=== PATIENT | male | born 1950 | race Caucasian/White ===

== ENCOUNTER 2016-12-16 09:59 | Emergency (ER) | payer OTHER ==
[~2016-12-16] VITALS: Ht 172.7 cm; Wt 121.6 kg
--- NOTE | ~2016-12-16 | EKG ---
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 : 1950 Requested By: Femi Llamas Order Number: [id number] MD: Elver Ricardo Measurements Intervals Gary Rate: 78 P: 32 NE: 221 QRS: -9 QRSD: 100 T: 9 QT: 402 QTc: 458 Interpretive Statements Sinus rhythm Prolonged NE interval Borderline T abnormalities, anterior leads Compared to ECG 12/11/2016 13:33:35 T-wave abnormality now present Electronically Signed On 12-17-2016 9:18:44 CDT by Elver Ricardo [email or web address] <ELECTRONICALLY SIGNED> By: Elver Ricardo MD, [facility] 12/17/16 0918 1040 1040 Elver Ricardo MD, FACC /EPI
[~2016-12-16 09:59] MED LIST: ALLOPURINOL 30300 M2 PO; ASPIR 8181 MG PO; CENTRUM SILVER1 EAC2 PO; CYCLOBENZAPRINE10 MG PO; CYMBALTA60 MG PO; FLOMAX0.4 MG PO; GABAPENTIN 100100 MG PO; HYDROCODONE-AP1 EAC6 PO; LASIX 20 MG TAB20 MG PO; LISINOPRIL10 MG PO; MEDROLDOSEPACK PO; METHOCARBAMOL500 M1; NEURONTIN 300300 M1 PO; OXYCODONE-APAP1 EAC6 PO; OXYCONTIN10 M1; OXYCONTIN10 M1 PO; PERCOCET 5-3251 EACH PO; PERCOCET 7.5-31 EACH PO; PERCOCET PO; POTASSIUM CHLO20 ME2 PO; RISPERDAL0.5 MG PO; TIZANIDINE HCL4 M1 PO; TIZANIDINE HCL4 MG PO; WELLBUTRIN 100100 MG PO; XANAX 0.5 MG0.5 MG PO; ZANAFLEX4 MG PO; ZOCOR20 MG PO; [UNRECOGNIZED DRUG - OTHER] PO
[2016-12-16 10:47] LABS: HEMOGLOBIN 12.3 gm/dL (14.0-18.0); RBC 4.16 mil/uL (4.50-6.00)
[2016-12-16 10:49] LABS: HEMATOCRIT 36.9 % (42.0-52.0); MCH 29.5 pg (26.0-34.0); MCHC 33.3 g/dL (28.0-37.0); MCV 88.6 fL (80.0-100.0); PLATELET COUNT 241 thou/uL (150-400); RDW 14.5 % (10.5-14.5); WBC 32.9 thou/uL (4.0-11.0)
[2016-12-16 10:50] LABS: MANUAL DIFF YES
[2016-12-16 10:56] LABS: ANION GAP 12 mmol/L (7-16); BUN 15 mg/dL (7-18); CHLORIDE 104 mmol/L (98-107); CO2 27 mmol/L (21-32); CREATININE 1.3 mg/dL (0.7-1.3); GLUCOSE 198 mg/dL (74-106); POTASSIUM 3.5 mmol/L (3.5-5.1); SODIUM 143 mmol/L (136-145)
[2016-12-16 11:07] LABS: ALKALINE PHOSPHATASE 58 U/L (46-116); NT-PRO BRAIN NAT PEPTIDE 232 pg/mL (<300); SGOT 21 U/L (15-37); SGPT 21 U/L (30-65); TOTAL BILIRUBIN 0.6 mg/dL (<0.1-1.0); TOTAL PROTEIN 5.8 g/dL (6.4-8.2); TROPONIN-I < 0.04 ng/mL (<0.04-0.07)
[2016-12-16 11:31] LABS: ABSOLUTE NEUTROPHILS 9.5 thou/uL (1.4-8.2); TOTAL CELL COUNT 100
[2016-12-16 11:32] LABS: ATYPICAL LYMPHS 3 %; OVALOCYTES 1+
[2016-12-16 11:33] LABS: ANISOCYTOSIS 1+
[2016-12-16] MEDS ORDERED: PENICILLIN V P500 MG PO (12:27)
== END 2016-12-16 12:53 ==
LOC: ER 09:59
PROVIDERS: Physician Assistant
DX: I88.9 Nonspecific lymphadenitis, unspecified (principal); C91.10 Chronic lymphocytic leukemia of B-cell type not having achieved remission; K02.9 Dental caries, unspecified; K04.01 Reversible pulpitis; R60.0 Localized edema; I10 Essential (primary) hypertension; E78.00 Pure hypercholesterolemia, unspecified; F32.9 Major depressive disorder, single episode, unspecified; F41.9 Anxiety disorder, unspecified; G47.30 Sleep apnea, unspecified; M10.9 Gout, unspecified; N40.0 Benign prostatic hyperplasia without lower urinary tract symptoms; Z90.49 Acquired absence of other specified parts of digestive tract; Z86.14 Personal history of Methicillin resistant Staphylococcus aureus infection; Z87.891 Personal history of nicotine dependence

== ENCOUNTER → 2016-12-27 | Outpatient (CLI) | payer OTHER ==
[~2016-12-27] VITALS: Ht 172.7 cm; Wt 113.3 kg
[~2016-12-27] MED LIST changes: +PENICILLIN V P500 MG PO; +PREDNISONE10 MG PO
--- NOTE | ~2016-12-27 | HPC ---
[facility] [place] [address] PAIN MANAGEMENT CONSULTATION Name: XU FITZGERALD Room #: REG OPAL Beckett#: [id number] Admission: 12/27/16 Attend Phys: Rxe Joyce DO Discharge: Date of : 48 Report #: [id number] THIS REPORT FOR: //name// CC: Ramirez Joyce DATE OF SERVICE: 12/27/2016 The patient is a 66-year-old gentleman. I have his for quite some time, though he has only been under my care recently since January. I had prior seen him back in 2009 for right shoulder pain and lost to follow up. When he returned on 02/23/2016, he had lumbar radicular symptoms. We did 3 epidural injection 02/06/2016, 03/05/2016 and 04/23/2016. He followed up in July. He had progressed to a right-sided L2-L3 and L3-L4 laminectomy with Dr. Stiven Ryder. His right leg seemed to get better. When I saw him, he was having some ongoing chronic pain concerns. I had a long discussion with the patient who [facility] 5/325 two tablets 3 times a day. He has multiple psychiatric comorbidities including history of Asperger disease, chronic anxiety and depression, history of hepatitis C as a child, was on multiple central acting agents. I suggested that he needed to be cautious with opiate analgesics. He asked if I would takeover his medication. I took the liberty of writing for Percocet 7.5/325 mandating that he not take 2 tablets at a onetime, simply take 1 tablet 3-4 times a day. He returns to pain clinic today noting that he continues to take 2 tablets 3 times a day, now taking 45 mg of oxycodone equivalent to about 65 mg of morphine a day. Complaining of ongoing pain stating that his medications are not providing sufficient analgesia. Again, a gentleman with multiple comorbidities including history of CLL, which had been relatively quiescent. Unfortunately, he has had an exacerbation. He has now been on fairly high dose steroids, which is causing a little bit of a garfield presently. Complaining of pain that he rates a 2 on a 0-10 visual analog scale but states that his medications do not provide sufficient analgesia. PHYSICAL EXAMINATION: Shows 66-year-old gentleman, moderately obese with a BMI of 38 kilograms per meter squared. Blood pressure 146/87, pulse 104, respirations are 20. Cranial 2-12 are generally intact. He is a little more animated today than usual. Again, we attribute this to the fairly high dose steroids. He has eschewed his hygiene issues recently. His states that he has been quite anxious around the home. Rises from the chair using armrest, modestly antalgic gait. Lumbar flexion is modestly limited though lower extremity strength is generally symmetric. ASSESSMENT: Lumbar radiculopathy status post decompressive laminectomy, chronic pain syndrome requiring complex medication management with medication management [address] [address] PAIN MANAGEMENT CONSULTATION Name: XU FITZGERALD Room #: TIFFANY Beckett#: [id number] Admission: 12/27/16 Attend Phys: Rex Joyce DO Discharge: Date of : 46 Report #: [id number] significantly complex due to comorbidities, anxiety, depression and multiple central acting agents including Cymbalta, Wellbutrin, Risperdal and prednisone currently taking 60 mg a day. RECOMMENDATIONS: Again, long talk with the patient today about appropriate expectations of opiate analgesics. Today, I have taken the liberty of rotating to a long-acting MS Contin 15 mg q. 8 hours, mandate that he not take more than 1 tablet at a time and not take more than 3 tablets in any 24-hour period. I did renew gabapentin 300 mg t.i.d., tizanidine 4 mg at bedtime. I will see him back in 2 months for reevaluation. We will want to get a urine drug screen at that time. The patient did sign an opiate consent to treat contract at last visit. Discharged in good stable condition after a prolonged visit from 10:45-11:10. Greater than 50% of the 25-minute visit was spent counseling the patient. <ELECTRONICALLY SIGNED> By: Rex Joyce DO 12/28/16 1308 1235 1355 Rex Joyce DO /nt
[2016-12-27 10:35] VITALS: BP 146/87
== END ==
LOC: PAIN 07:16
DX: M54.16 Radiculopathy, lumbar region (principal); G89.4 Chronic pain syndrome; F41.8 Other specified anxiety disorders; I10 Essential (primary) hypertension

== ENCOUNTER → 2016-12-28 | Outpatient (CLI) | payer OTHER | LOC: CAT 12-19 12:40 | DX: M47.896 Other spondylosis, lumbar region (principal); M47.894 Other spondylosis, thoracic region; R59.1 Generalized enlarged lymph nodes ==

== ENCOUNTER → 2017-01-08 | Outpatient (CLI) | payer OTHER | LOC: MRI 02:52 | DX: N28.9 Disorder of kidney and ureter, unspecified (principal) ==

== ENCOUNTER → 2017-02-08 | Outpatient (CLI) | payer OTHER ==
[~2017-02-08] VITALS: Ht 167.6 cm; Wt 115.7 kg
[~2017-02-08] MED LIST changes: +MS CONTIN30 MG PO
--- NOTE | ~2017-02-08 | HPC ---
[facility] [place] [address] PAIN MANAGEMENT CONSULTATION Name: XU FITZGERALD Room #: REG Andreas Smith.#: [id number] Admission: 02/08/17 Attend Phys: Rex Joyce DO Discharge: Date of : 48 Report #: [id number] THIS REPORT FOR: //name// CC: Ramirez Joyce DATE OF SERVICE: 02/08/2017 The patient is a 66-year-old gentleman being treated for lumbar radiculopathy status post decompressive laminectomy, component of significant anxiety, depression, on multiple central acting agents including Risperdal, bupropion, Cymbalta and divalproex. Last visit 12/27/2016, we rotated from Percocet 7.5 because he continually was taking 2 at a time 3 times a day. Was taking roughly 45 mg of oxycodone equivalent to some 67.5 mg of morphine. We rotated the MS Contin 15 mg q. 8 hours. Returns to pain clinic today noting that medications are helpful, but not quite as efficacious as his prior agent. This is reasonable. We recognized that we had done an approximately 25% decrease in his overall opiate load. Continued the patient on gabapentin 300 mg 3 times a day, tizanidine at bedtime. Returns to pain clinic today noting that several things have occurred. Notes his pain is an 8/10. He has been found to have a mass in the right kidney (cancer?). Does have a biopsy/kidney resection versus nephrectomy scheduled 03/14/2017 at . Notes pain, however, is in the low back, left side radiating to the groin. Tender in the left low back. Flexion is good to about 90 degrees. Lower extremity strength is symmetric. Straight leg raise is nominal. Rotation is okay. Does have a positive Jermaine test on the left with pain radiating to the groin in a classic lumbar radicular pattern (L2?). He had prior had L2-L3 and L3-L4 lumbar laminectomies, right side. MRI from 06/05/2016 noted prior interval surgery with small right-sided laminectomies at L2-L3 and L3-L4, some decompression there. Still has fairly significant spinal stenosis and thecal sac narrowing at these levels. We reviewed the fact that opiate medications are being used to provide analgesia adequate to support activities of daily living, not attempting to achieve a specific pain score on the 0-10 Visual Analog Scale. The current opiate medications are providing sufficient analgesia to allow the patient to participate in activities of daily living. The patient is not exhibiting any aberrant behavior suggestive of drug diversion. The patient is not having any adverse reactions to medications. The patient is not suffering from daytime somnolence or mental acuity changes. The [place] [address] PAIN MANAGEMENT CONSULTATION Name: XU FITZGERALD Room #: REG OPAL Beckett#: [id number] Admission: 02/08/17 Attend Phys: Rex Joyce DO Discharge: Date of : 46 Report #: [id number] constipation with appropriate irqz-sjt-kkqohgr agents and dietary considerations. The patient was counseled on concern for caution with operating a motor vehicle while using opiate medications. A physical exam was performed and the patient's functional status was evaluated. All patients with back pain were advised against the bed rest greater than 4 days and were advised to return to normal activities. Pain score assessment was noted and the treatment plan was reviewed with the patient. All current medications, both prescribed and OTC were reviewed and reconciled on the electronic medical record. Tobacco screening was accomplished and smoking cessation was advised when indicated. BMI was noted and diet/exercise modification was recommended for all patients following outside normal parameters. I reviewed with the patient today their responsibilities to safeguard prescription medications, reviewed their responsibility to utilize medications only as prescribed by the physician. They are to seek and receive pain medications only from 1 physician group ( [facility]). They are to use 1 pharmacy and keep the clinic informed if they change pharmacies. Their responsibilities include making followup visits in a timely fashion and to avoid abrupt discontinuation of medication usage. Their responsibilities further include bringing their medications (bottles from the pharmacy with residual pills) to the visit for possible confirmation of pill counts and the patient understands it is their responsibility to submit to random drug screens to ensure both that the medications prescribed are present, and that no other controlled substances are present. All prescriptions provided today were generated electronically. ASSESSMENT: Lumbar radiculopathy status post decompressive laminectomy, chronic axial back pain and acute lumbar radicular symptoms, chronic anxiety, depression with significant psychiatric comorbidities, history of chronic lymphocytic leukemia and new diagnosis of right renal pathology, requiring complex medication management. RECOMMENDATION: 1. We will increase MS Contin from 15 mg q. 8 hours to 30 mg b.i.d., increasing the overall opiate load by about 30%, up to 60 mg of morphine. Continue gabapentin and tizanidine unchanged, does not need renewals of these medications. 2. Fluoroscopic-guided lumbar epidural injection today, left of midline at L4-L5. May consider repeat injection if indicated, left L2-L3 transforaminal? PROCEDURE: Lumbar epidural injection under fluoroscopy. PROCEDURE NOTE: After both written and informed consent to include risk of spinal cord damage, increased pain, weakness and dural puncture, the patient was [address] [address] PAIN MANAGEMENT CONSULTATION Name: XU FITZGERALD John [facility] [id number] Admission: 02/08/17 Attend Phys: Rex Joyce DO Discharge: Date of : 46 Report #: [id number] taken to the fluoroscopy suite, placed in the prone position. After sterile prep and drape, a skin wheal with lidocaine was raised. A 22-gauge epidural Tuohy needle was inserted in the midline at L4-L5 with good loss to resistance. Negative aspiration for cerebrospinal fluid or blood was noted. Then 1 mL of Omnipaque under biplanar fluoroscopy showed good spread within the epidural space. This was followed with 80 mg of triamcinolone plus 1 mL of 1.5% preservative-free Xylocaine, 0.5 mL Xylocaine was then injected to flush the needle; it was removed. The patient was monitored for an appropriate period of time and discharged in good and stable condition. Urine drug screen was accomplished today. No aberrant behavior suggestive for drug diversion, simply complying with our opiate consent to treat contract. The patient was seen for prolonged visit reviewing significant interval issues and complex medication decisions with multiple drug interactions. Seen from approximately 9:05-9:34, taken to the procedure room at 9:34. <ELECTRONICALLY SIGNED> By: Rex Joyce DO 02/11/17 0856 1028 1232 Rex Joyce DO /nt
[2017-02-08 09:13] VITALS: BP 143/76
== END | disposition home or self-care (01) ==
LOC: PAIN 06:57
DX: M54.16 Radiculopathy, lumbar region (principal); C91.10 Chronic lymphocytic leukemia of B-cell type not having achieved remission; N28.89 Other specified disorders of kidney and ureter; F32.89 Other specified depressive episodes; F11.20 Opioid dependence, uncomplicated; F41.8 Other specified anxiety disorders; Z98.890 Other specified postprocedural states; Z87.891 Personal history of nicotine dependence; Z79.82 Long term (current) use of aspirin; Z79.899 Other long term (current) drug therapy

== ENCOUNTER → 2017-03-28 | Outpatient (CLI) | payer OTHER ==
[~2017-03-28] VITALS: Ht 172.7 cm; Wt 110.7 kg
--- NOTE | ~2017-03-28 | HPC ---
[facility] [place] [address] PAIN MANAGEMENT CONSULTATION Name: XU FITZGERALD Room #: REG [facility] Andressa.#: [id number] Admission: 03/28/17 Attend Phys: Rex Joyce DO Discharge: Date of : 48 Report #: [id number] THIS REPORT FOR: //name// CC: Ramirez Joyce DATE OF SERVICE: 03/28/2017 The patient is a 66-year-old gentleman being treated for lumbar radiculopathy status post decompressive laminectomy, axial back pain requiring complex medication management. Last seen in the pain clinic 02/08/2017. Rotated the patient to MS Contin 15 mg q. 8 hours as he kept taking Percocet 7.5/325 fairly aggressively. At our last visit 02/08/2017, we increased his opiate load about 30% overall and switched to MS Contin 30 mg b.i.d. We did do a left midline L4-L5 epidural injection at that time. Returns to pain clinic today. He did progress to have a right nephrectomy due to a cancer that had been found incidentally while following up on his chronic lymphocytic leukemia. He notes overall pain is improved with current medication. He is using gabapentin 300 mg 3 tablets twice a day with 2 at bedtime for a total of 8 tablets a day or 2400 mg. Rates his pain at 8 on a VAS, low back, left side (status post right nephrectomy). The patient states pain is exacerbated with standing and twisting. Lumbar radicular pain is fairly nominal at this point. Had 50% relief from the epidural injection. PHYSICAL EXAMINATION: Shows 66-year-old gentleman, BMI is 37.1 kilograms per meter squared. Blood pressure is nominally elevated at 156/88, pulse 98, respirations 16. Rises from chair using armrest. Gait is tandem. Lower extremity strength is preserved. Does have some tenderness in the left lumbar paravertebral muscles. Well healed right nephrectomy scar not tender in this area. We reviewed the fact that opiate medications are being used to provide analgesia adequate to support activities of daily living, not attempting to achieve a specific pain score on the 0-10 Visual Analog Scale. The current opiate medications are providing sufficient analgesia to allow the patient to participate in activities of daily living. The patient is not exhibiting any aberrant behavior suggestive of drug diversion. The patient is not having any adverse reactions to medications. The patient is not suffering from daytime somnolence or mental acuity changes. The patient is managing opiate-induced constipation with appropriate payf-yby-bltmyjm agents and dietary considerations. The patient was counseled on concern for caution with operating a motor vehicle while using opiate medications. A physical exam was performed and the patient's functional status was evaluated. All patients with back pain were advised against the bed rest greater than [address] [place] [address] PAIN MANAGEMENT CONSULTATION Name: XU FITZGERALD Room #: REG OPAL Beckett#: [id number] Admission: 03/28/17 Attend Phys: Rex Joyce DO Discharge: Date of : 46 Report #: [id number] days and were advised to return to normal activities. Pain score assessment was noted and the treatment plan was reviewed with the patient. All current medications, both prescribed and OTC were reviewed and reconciled on the electronic medical record. Tobacco screening was accomplished and smoking cessation was advised when indicated. BMI was noted and diet/exercise modification was recommended for all patients following outside normal parameters. I reviewed with the patient today their responsibilities to safeguard prescription medications, reviewed their responsibility to utilize medications only as prescribed by the physician. They are to seek and receive pain medications only from 1 physician group ( [facility]). They are to use 1 pharmacy and keep the clinic informed if they change pharmacies. Their responsibilities include making followup visits in a timely fashion and to avoid abrupt discontinuation of medication usage. Their responsibilities further include bringing their medications (bottles from the pharmacy with residual pills) to the visit for possible confirmation of pill counts and the patient understands it is their responsibility to submit to random drug screens to ensure both that the medications prescribed are present, and that no other controlled substances are present. All prescriptions provided today were generated electronically. ASSESSMENT: Lumbar radiculopathy status post decompressive laminectomy, axial back pain requiring complex medication management, stable on baseline medications. RECOMMENDATION: Continue MS Contin 30 mg b.i.d. We will increase tizanidine to 4 mg a half to one tablet up to 3 times a day for spasm, taken the liberty of writing for 2 months of current medication. He does not require renewal of his gabapentin. Follow up in 2 months for reevaluation. We will want to check a urine drug screen at that time. No aberrant behavior suggestive for drug diversion, simply complying with our opiate consent to treat contract. <ELECTRONICALLY SIGNED> By: Rex Joyce DO 04/01/17 0746 1547 1605 Rex Joyce DO /nt
[2017-03-28 13:14] VITALS: BP 156/88
[2017-03-28 13:16] VITALS: BP 156/88
== END ==
LOC: PAIN 07:21
DX: Z76.0 Encounter for issue of repeat prescription (principal); M54.16 Radiculopathy, lumbar region; M54.5 Low back pain; C91.10 Chronic lymphocytic leukemia of B-cell type not having achieved remission; Z98.890 Other specified postprocedural states; Z79.891 Long term (current) use of opiate analgesic; Z90.5 Acquired absence of kidney; Z85.528 Personal history of other malignant neoplasm of kidney

== ENCOUNTER → 2017-05-30 | Outpatient (CLI) | payer OTHER ==
[~2017-05-30] VITALS: Ht 172.7 cm; Wt 113.4 kg
[~2017-05-30] MED LIST changes: +ZANAFLEX4 M2 PO
--- NOTE | ~2017-05-30 | HPC ---
[facility] [address] [place] [address] PAIN MANAGEMENT CONSULTATION Name: XU FITZGERALD Room #: REG [facility] Sarah.#: [id number] Admission: 05/30/17 Attend Phys: Rex Joyce DO Discharge: Date of : 48 Report #: [id number] THIS REPORT FOR: //name// CC: Ramirez Joyce DATE OF SERVICE: 05/30/2017 The patient is an unfortunate 67-year-old gentleman being treated for lumbar radiculopathy status post decompressive laminectomy, axial back pain requiring high-risk complex medication management. Status post right nephrectomy. Being treated for chronic lymphocytic leukemia. Last visit 03/28/2017, we continued the patient on MS Contin 30 mg b.i.d. (increased from 15 t.i.d.). Having increasing spasm, we increased his tizanidine from 2 to 4 mg a day. Returns to pain clinic today noting that the increase in tizanidine caused untoward sedation. He notes primary pain is in the low back and with mid back intermittent spasm. He uses acetaminophen for this pain. Rates pain a 4 on VAS. Notes the pain is exacerbated with standing, twisting and bending. He lives a very sedentary life. Talked today about trying to manage myofascial and axial back pain with some increase in activity. PHYSICAL EXAMINATION: Shows 67-year-old gentleman, BMI is 38 kilograms per meter squared, blood pressure is 140/90, pulse is 69, respirations are 18. Rises from chair using armrest. Gait is moderately antalgic. Diffuse tenderness in the back, but no discrete trigger points are noted. Lumbar flexion is limited. He is becoming more endomorphic. BMI is 38 kilograms per meter squared (height is 172 cm, weight is 113 kilograms). Notes that he really does no particular activity. Does no recreational walking, certainly no other exercise. We reviewed the fact that opiate medications are being used to provide analgesia adequate to support activities of daily living, not attempting to achieve a specific pain score on the 0-10 Visual Analog Scale. The current opiate medications are providing sufficient analgesia to allow the patient to participate in activities of daily living. The patient is not exhibiting any aberrant behavior suggestive of drug diversion. The patient is not having any adverse reactions to medications. The patient is not suffering from daytime somnolence or mental acuity changes. The patient is managing opiate-induced constipation with appropriate efec-upn-ktnlvru agents and dietary considerations. The patient was counseled on concern for caution with operating a motor vehicle while using opiate medications. A physical exam was performed and the patient's functional status was evaluated. All patients with back pain were advised against the bed rest greater than 4 days and were advised to return to normal activities[place] [address] PAIN MANAGEMENT CONSULTATION Name: XU FITZGERALD Room #: REG OPAL Beckett#: [id number] Admission: 05/30/17 Attend Phys: Rex Joyce DO Discharge: Date of : 46 Report #: [id number] noted and the treatment plan was reviewed with the patient. All current medications, both prescribed and OTC were reviewed and reconciled on the electronic medical record. Tobacco screening was accomplished and smoking cessation was advised when indicated. BMI was noted and diet/exercise modification was recommended for all patients following outside normal parameters. I reviewed with the patient today their responsibilities to safeguard prescription medications, reviewed their responsibility to utilize medications only as prescribed by the physician. They are to seek and receive pain medications only from 1 physician group ( [facility]). They are to use 1 pharmacy and keep the clinic informed if they change pharmacies. Their responsibilities include making followup visits in a timely fashion and to avoid abrupt discontinuation of medication usage. Their responsibilities further include bringing their medications (bottles from the pharmacy with residual pills) to the visit for possible confirmation of pill counts and the patient understands it is their responsibility to submit to random drug screens to ensure both that the medications prescribed are present, and that no other controlled substances are present. All prescriptions provided today were generated electronically. ASSESSMENT: Chronic back pain, axial back pain status post lumbar decompressive laminectomy requiring high-risk complex medication management. RECOMMENDATION: 1. Continue MS Contin 30 mg b.i.d. Discontinue tizanidine. We will get flexion and extension x-rays of the lumbar spine. The patient states he feels a "movement and clunk" with movement in his low back. I ordered x-rays, flexion and extension of the back, though the patient left the clinic without getting the x-rays. We will strongly recommend the patient start to walk at least 30 minutes a day. He bargained with this, asking if he could walk 10 minutes 3 times a day. I suggested he could start by walking 10 minutes 3 times a day and gradually increase those times to 15, 20 and then 30 minutes. 2. We will continue baseline medication unchanged. 3. A buccal swab was accomplished today, no aberrant behavior suggestive for drug diversion, simply complying with our opiate consent to treat contract. The patient was seen for approximately 30 minutes today from 12:59-13:30, greater than 50% of this time was spent counseling the patient, encouraging activity, weight reduction, range of motion, stretching. <ELECTRONICALLY SIGNED> By: Rex Joyce DO 05/31/17 0657 1554 1943 Rex Joyce DO /nt
[2017-05-30 12:54] VITALS: BP 140/90
== END | disposition home or self-care (01) ==
LOC: PAIN 07:06
DX: Z76.0 Encounter for issue of repeat prescription (principal); M54.5 Low back pain; G89.29 Other chronic pain; C91.10 Chronic lymphocytic leukemia of B-cell type not having achieved remission; M79.1 Myalgia; Z98.890 Other specified postprocedural states; Z90.5 Acquired absence of kidney; Z79.891 Long term (current) use of opiate analgesic; Z87.891 Personal history of nicotine dependence; Z79.82 Long term (current) use of aspirin; Z79.899 Other long term (current) drug therapy

== ENCOUNTER → 2017-06-13 | Outpatient (CLI) | payer OTHER | LOC: RAD 12:53 | DX: M48.061 Spinal stenosis, lumbar region without neurogenic claudication (principal) ==

== ENCOUNTER → 2017-06-17 | Outpatient (CLI) | payer OTHER ==
[~2017-06-17] VITALS: Ht 172.7 cm; Wt 115.3 kg
--- NOTE | ~2017-06-17 | HPC ---
[facility] [place] [address] PAIN MANAGEMENT CONSULTATION Name: XU FITZGERALD Room #: REG [facility] Sarah.#: [id number] Admission: 06/17/17 Attend Phys: Rex Joyce DO Discharge: Date of : 46 Report #: [id number] THIS REPORT FOR: //name// CC: Ramirez Joyce The patient is a 67-year-old gentleman, being treated for lumbar radiculopathy status post decompressive laminectomy, axial back pain, requiring high risk complex medication management. Continued 05/30/2017 on MS Contin 30 mg b.i.d. We discontinued tizanidine due to sedation. Encouraged the patient to increase physical activity. The patient was complaining of a " " in his back with flexion and extension. I ordered flexion and extension x-rays of the lumbar spine, which were obtained 06/13/2017, they showed no malalignment nor significant pathology, does have some facet DJD and retrolisthesis of L3 on L4 at 5.5 mm, again with no changes in flexion or extension. The patient presents to pain clinic today for epidural injection under fluoroscopy as discussed at last visit. He prior had an epidural injection in January with a greater than 60% relief for 6-8 weeks. The patient returns to pain clinic today noting pain remains 7 on VAS, primarily low back, right leg. ASSESSMENT: Symptomatic lumbar radiculopathy, status post decompressive laminectomy. PROCEDURE: Lumbar epidural injection under fluoroscopy. PROCEDURE NOTE: After both written and informed consent to include risk of spinal cord damage, increased pain, weakness and dural puncture, the patient was taken to the fluoroscopy suite, placed in the prone position. After sterile prep and drape, a skin wheal with lidocaine was raised. A 22-gauge epidural Tuohy needle was inserted in the midline at L5-S1 with good loss to resistance. Negative aspiration for cerebrospinal fluid or blood was noted. Then 1 mL of Omnipaque under biplanar fluoroscopy showed good spread within the epidural space. This was followed with 80 mg of triamcinolone plus 1 mL of 1.5% preservative-free Xylocaine, 0.5 mL Xylocaine was then injected to flush the needle; it was removed. The patient was monitored for an appropriate period of time and discharged in good and stable condition. By: [id number] Rex Joyce DO /nt
[2017-06-17 12:50] VITALS: BP 155/100
== END | disposition home or self-care (01) ==
LOC: PAIN 06-06 06:56
DX: M54.16 Radiculopathy, lumbar region (principal); G89.29 Other chronic pain; C91.10 Chronic lymphocytic leukemia of B-cell type not having achieved remission; Z87.891 Personal history of nicotine dependence; Z90.5 Acquired absence of kidney; Z79.891 Long term (current) use of opiate analgesic; Z98.890 Other specified postprocedural states

== ENCOUNTER → 2017-07-29 | Outpatient (CLI) | payer OTHER ==
[~2017-07-29] VITALS: Ht 172.7 cm; Wt 103.5 kg
--- NOTE | ~2017-07-29 | HPC ---
[facility] [place] [address] PAIN MANAGEMENT CONSULTATION Name: XU FITZGERALD Room #: REG [facility] Sarah.#: [id number] Admission: 07/29/17 Attend Phys: Rex Joyce DO Discharge: Date of : 46 Report #: [id number] THIS REPORT FOR: //name// CC: Ramirez Joyce HISTORY OF PRESENT ILLNESS: The patient is a 67-year-old gentleman long treated for lumbar radiculopathy status post decompressive laminectomy, axial back pain requiring high risk complex medication management. He is relatively stable on MS Contin 30 mg b.i.d. We did an epidural injection at last visit, midline L5-S1 on 06/17/2017. The patient returns to clinic today noting the injection afforded very good relief, noting specifically 70% relief with improvement ongoing. PHYSICAL EXAMINATION: This is a 67-year-old gentleman, BMI 34.7 kilograms per meter squared. Has an upper respiratory infection today, which he states has been going on a week. He is afebrile, temperature is 97.7, blood pressure is 154/85, pulse 110, respirations 18. Cranial nerves 2-12 are grossly intact. Pupils equal and react to light and accommodation. Extraocular muscles are intact. Does have some appreciable cervical adenopathy, course rhonchi throughout all lung th[place]. Does not have any tenderness over the frontal or maxillary sinuses. Upper extremity strength is preserved. Rises from chair using armrest, modestly antalgic gait, diffuse tenderness across the low back. No discrete trigger points are noted. We reviewed the fact that opiate medications are being used to provide analgesia adequate to support activities of daily living, not attempting to achieve a specific pain score on the 0-10 Visual Analog Scale. The current opiate medications are providing sufficient analgesia to allow the patient to participate in activities of daily living. The patient is not exhibiting any aberrant behavior suggestive of drug diversion. The patient is not having any adverse reactions to medications. The patient is not suffering from daytime somnolence or mental acuity changes. The patient is managing opiate-induced constipation with appropriate wbbf-xep-gqkmuqb agents and dietary considerations. The patient was counseled on concern for caution with operating a motor vehicle while using opiate medications. A physical exam was performed and the patient's functional status was evaluated. All patients with back pain were advised against the bed rest greater than 4 days and were advised to return to normal activities. Pain score assessment was noted and the treatment plan was reviewed with the patient. All current medications, both prescribed and OTC were reviewed and reconciled on the electronic medical record. Tobacco screening was accomplished and smoking cessation was advised when indicated. BMI was noted and diet/exercise modification was recommended for all patients following outside normal parameters. [address] [address] PAIN MANAGEMENT CONSULTATION Name: XU FITZGERALD Room #: REG [facility] Sujit#: [id number] Admission: 07/29/17 Attend Phys: Rex Joyce DO Discharge: Date of : 46 Report #: [id number] I reviewed with the patient today their responsibilities to safeguard prescription medications, reviewed their responsibility to utilize medications only as prescribed by the physician. They are to seek and receive pain medications only from 1 physician group ( [facility]). They are to use 1 pharmacy and keep the clinic informed if they change pharmacies. Their responsibilities include making followup visits in a timely fashion and to avoid abrupt discontinuation of medication usage. Their responsibilities further include bringing their medications (bottles from the pharmacy with residual pills) to the visit for possible confirmation of pill counts and the patient understands it is their responsibility to submit to random drug screens to ensure both that the medications prescribed are present, and that no other controlled substances are present. All prescriptions provided today were generated electronically. ASSESSMENT: Chronic axial back pain status post lumbar decompressive laminectomy requiring high risk medication management, stable on baseline medication. RECOMMENDATIONS: 1. Continue MS Contin 30 mg b.i.d. Last random drug screen on 05/30/2017 was positive for prescribed medications and no others. 2. Continue tizanidine 4 mg t.i.d. for muscle spasm. 3. Continue range of motion, physical activity. 4. Strongly recommend the patient follow up with Dr. Silva regarding upper respiratory infection. Comorbidity of multiple myeloma. Discharged in good and stable condition. Follow up in 2 months for reevaluation. By: [id number] Rex Joyce DO /nt
[2017-07-29 09:56] VITALS: BP 154/85
== END ==
LOC: PAIN 07:20
DX: M54.16 Radiculopathy, lumbar region (principal); Z98.890 Other specified postprocedural states; Z79.899 Other long term (current) drug therapy

== ENCOUNTER → 2017-08-30 | Outpatient (CLI) | payer OTHER ==
[~2017-08-30] VITALS: Ht 172.7 cm; Wt 114.8 kg
[~2017-08-30] MED LIST changes: +MOBIC7.5 MG PO
--- NOTE | ~2017-08-30 | HPC ---
[facility] [address] [place] [address] PAIN MANAGEMENT CONSULTATION Name: XU FITZGERALD Room #: REG OPAL Beckett#: [id number] Admission: 08/30/17 Attend Phys: Rex Joyce DO Discharge: Date of : 46 Report #: [id number] THIS REPORT FOR: //name// CC: Ramirez Joyce HISTORY OF PRESENT ILLNESS: The patient is a 67-year-old gentleman being treated for lumbar radiculopathy, status post decompressive laminectomy; axial back pain and chronic pain, requiring high-risk complex medication management. He has been treated for lymphoma. Last visit, 07/29/2017, we continued baseline narcotic, including MS Contin 30 mg b.i.d., tried some muscle relaxants and tizanidine. TIZANIDINE CAUSED UNTOWARD SEDATION and he discontinued it. Last visit, he had a bit of an upper respiratory infection. He followed up with Dr. Silva, this has resolved. Last urine drug screen, 05/30/2017, was positive for prescribed medications. We reviewed the fact that opiate medications are being used to provide analgesia adequate to support activities of daily living, not attempting to achieve a specific pain score on the 0-10 Visual Analog Scale. The current opiate medications are providing sufficient analgesia to allow the patient to participate in activities of daily living. The patient is not exhibiting any aberrant behavior suggestive of drug diversion. The patient is not having any adverse reactions to medications. The patient is not suffering from daytime somnolence or mental acuity changes. The patient is managing opiate-induced constipation with appropriate jaox-mta-fgusouo agents and dietary considerations. The patient was counseled on concern for caution with operating a motor vehicle while using opiate medications. A physical exam was performed and the patient's functional status was evaluated. All patients with back pain were advised against the bed rest greater than 4 days and were advised to return to normal activities. Pain score assessment was noted and the treatment plan was reviewed with the patient. All current medications, both prescribed and OTC were reviewed and reconciled on the electronic medical record. Tobacco screening was accomplished and smoking cessation was advised when indicated. BMI was noted and diet/exercise modification was recommended for all patients following outside normal parameters. I reviewed with the patient today their responsibilities to safeguard prescription medications, reviewed their responsibility to utilize medications only as prescribed by the physician. They are to seek and receive pain medications only from 1 physician group ( [facility]). They are to use 1 pharmacy and keep the clinic informed if they change pharmacies. Their responsibilities include making followup visits in a timely fashion and to avoid abrupt discontinuation of medication usage. Their responsibilities further [address] [address] PAIN MANAGEMENT CONSULTATION Name: XU FITZGERALD Room #: REG OPAL Beckett#: [id number] Admission: 08/30/17 Attend Phys: Rex Joyce DO Discharge: Date of : 46 Report #: [id number] include bringing their medications (bottles from the pharmacy with residual pills) to the visit for possible confirmation of pill counts and the patient understands it is their responsibility to submit to random drug screens to ensure both that the medications prescribed are present, and that no other controlled substances are present. All prescriptions provided today were generated electronically. PHYSICAL EXAMINATION: GENERAL: Shows a somewhat disheveled 67-year-old gentleman, a flat affect. On multiple central acting agents for bipolar disorder. Actually appears a little more ambulatory today than before. He is fairly sedentary in general. MUSCULOSKELETAL: Physical exam does show slight decreased bilateral legs, right somewhat more than the left, with a positive straight leg raise bilaterally, a little greater on the left than the right at 30 degrees. Patellar reflex diminished, symmetric. Axial back pain continues unabated. ASSESSMENT: 1. Symptomatic lumbar radiculopathy, status post decompressive laminectomy and axial back pain, requiring high-risk complex medication management. RECOMMENDATIONS: Continue MS Contin 30 mg b.i.d. I have taken the liberty of writing for 2 months of current medication. Again, urine drug screen 2 months ago positive for prescribed medication. We reviewed opiate consent to treat contract today. Discontinue tizanidine due to sedation. 2. Acute exacerbation of lumbar radiculopathy. PROCEDURE NOTE PROCEDURE: Lumbar epidural injection under fluoroscopy. PROCEDURE NOTE: After both written and informed consent to include risk of spinal cord damage, increased pain, weakness and dural puncture, the patient was taken to the fluoroscopy suite, placed in the prone position. After sterile prep and drape, a skin wheal with lidocaine was raised. A 22-gauge epidural Tuohy needle was inserted in the midline at a level of L5-S1 with good loss to resistance. Negative aspiration for cerebrospinal fluid or blood was noted. Then 1 mL of Omnipaque under biplanar fluoroscopy showed good spread within the epidural space. This was followed with 80 mg of triamcinolone plus 1 mL of 1.5% preservative-free Xylocaine, 0.5 mL Xylocaine was then injected to flush the [facility] [address] [place] [address] PAIN MANAGEMENT CONSULTATION Name: XU FITZGERALD Room #: REG OPAL Sujit#: [id number] Admission: 08/30/17 Attend Phys: Rex Joyce DO Discharge: Date of : 46 Report #: [id number] needle; it was removed. The patient was monitored for an appropriate period of time and discharged in good and stable condition. <ELECTRONICALLY SIGNED> By: Rex Joyce DO 09/02/17 [id number] Rex Joyce DO /nt
[2017-08-30 09:22] VITALS: BP 123/71
== END | disposition home or self-care (01) ==
LOC: PAIN 06:47
DX: M54.16 Radiculopathy, lumbar region (principal); Z98.890 Other specified postprocedural states; G89.29 Other chronic pain; Z79.899 Other long term (current) drug therapy; F31.9 Bipolar disorder, unspecified